=== PATIENT | male | born 1985 | race African-American/Black ===

== ENCOUNTER 2019-06-19 22:26 | Emergency (ER) | payer SELFPAY ==
[2019-06-19] MEDS ORDERED: Ondansetron 4 MG Tab.DIS PO ONE (23:13)
--- NOTE | 2019-06-19 23:17 | EDM.PDOC ---
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 He has had loose stools for the past 4 hours. Mild intermittent abdominal cramps, no fevers or chills. They wanted him to stay at work but he feels too ill so came here to get cleared. No vomiting currently. Onset: Gradual (Over the past 4 to 6 hours) Associated Symptoms: Reports: Loss of Appetite, Malaise, Nausea/Vomiting. Denies: Fever/Chills, Headaches - Related Data Allergies Allergy/AdvReac Type Severity Reaction Status Date / Time No Known Allergies Allergy Verified 06/19/19 22:54 Home Meds: Home Meds NK [No Known Home Meds] 06/19/19 [History] Past Medical History Genitourinary History: Reports: Renal Calculus Social & Family History - Tobacco Use Smoking Status *Q: Never Smoker - Caffeine Use Caffeine Use: Reports: Coffee, Energy Drinks - Recreational Drug Use Recreational Drug Use: No ED ROS GENERAL - Review of Systems Review Of Systems: See Below Constitutional: Reports: Malaise, Decreased Appetite. Denies: Fever, Chills HEENT: Reports: No Symptoms Respiratory: Denies: Shortness of Breath Cardiovascular: Denies: Chest Pain GI/Abdominal: Reports: Abdominal Pain, Diarrhea, Nausea, Vomiting Skin: Reports: No Symptoms Neurological: Reports: No Symptoms ED EXAM, GI/ABD - Physical Exam Exam: See Below Exam Limited By: No Limitations General Appearance: Alert, No Apparent Distress Eyes: Bilateral: Normal Appearance Respiratory/Chest: No Respiratory Distress, Lungs Clear Cardiovascular: Regular Rate, Rhythm GI/Abdominal Exam: Normal Bowel Sounds, Soft, Non-Tender Course - Vital Signs Last Recorded V/S: Last Vital Signs Temp 97.0 F 06/19/19 22:54 Pulse 66 06/19/19 22:54 Resp 18 06/19/19 22:54 BP 115/77 06/19/19 22:54 Pulse Ox 97 06/19/19 22:54 - Orders/Labs/Meds Meds: Medications Discontinued Medications Generic Name Dose Route Start Last Admin Trade Name Freq PRN Reason Stop Dose Admin Ondansetron HCl 4 mg 06/19/19 23:13 06/19/19 23:18 Zofran Odt PO 06/19/19 23:14 4 mg ONETIME ONE Administration - Re-Assessments/Exams Free Text/Narrative Re-Assessment/Exam: 06/19/19 23:15 Patient was given 1 sublingual Zofran and 5 additional doses to take up to 3 times daily for the next 48 hours. Encourage clear liquids and gradually increasing diet as tolerated and stay home from work for the next 1 to 2 days. Return anytime if worsening, or consider rechecking next week if not improved satisfactorily. Departure - Departure Time of Disposition: 23:28 Disposition: Home, Self-Care 01 Clinical Impression: Gastroenteritis - Discharge Information Instructions: Nausea and Vomiting, Adult, [id number] Referrals: PCP,None [Primary Care Provider] - Forms: ED Department Discharge Care Plan Goals: Just liquids tonight and slowly advance diet as tolerated through the weekend. Use Zofran under your tongue up to 3 times daily for nausea. Recheck next week if not improving satisfactorily, or return sooner if worsening such as increased pain, fever, or uncontrolled vomiting. Sepsis Event Note - Evaluation Sepsis Screening Result: No Definite Risk - Focused Exam Vital Signs: Vital Signs Temp Pulse Resp BP Pulse Ox 06/19/19 22:54 97.0 F 66 18 115/77 97 06/19/19 22:48 97.0 F 66 18 115/77 97 Date Exam was Performed: 06/20/19 Time Exam was Performed: 02:43
== END 2019-06-19 23:28 | disposition home or self-care (01) ==
LOC: JP.ED 22:26
DX: K52.9 Noninfective gastroenteritis and colitis, unspecified (principal)
CPT/HCPCS: 99283; A9270-GY